=== PATIENT | male | born 1955 | race Caucasian/White ===

== ENCOUNTER 2019-06-01 08:11 | Observation (INO) | payer OTHER ==
[~2019-06-01] VITALS: Ht 185.4 cm; Wt 101.2 kg
[~2019-06-01 08:11] MED LIST: ASPIR 8181 MG PO; Apixab PO; CARDIZEM CD120 MG PO; LEVOTHYROXINE50 MCG PO; LEVOTHYROXINE75 MCG PO; SYNTHROID75 MCG PO
--- OUTSIDE RECORDS SUMMARY | 2019-06-01 08:13 | XMS REPORT | Continuity of Care Document ---
Author Author [facility] Organization [facility] Address Unknown Phone Unavailable Care Team Providers Care Steam Blocker Name Role Phone MD Justus, Nelson Unavailable Insurance Providers Payer name Policy type / Coverage type Policy ID Covered democrat ID Policy Dickey AETNA - AETNA OPEN ACCESS - MC - NAP Encounters Encounter Performer Location Date Office Visit Nelson Jerome MD [facility] Colorectal Surgery Dec 13, 2014 Problems Problem Effective Dates Problem Status SCREENING FOR COLON CANCER Dec 15, 2014 Active Medications Medication Instructions Start Date Status LEVOTHYROXINE SODIUM TABS Dec 13, 2014 Active ALEVE CAPS Dec 13, 2014 Active Vital Signs Date Description Test Result Dec 13, 2014 weight E&M - 3141-9 WEIGHT 234 lb Dec 13, 2014 temperature E&M TEMPERATURE 98.7 deg f Dec 13, 2014 pulse rate E&M - 8867-4 PULSE RATE 88 /min Dec 13, 2014 blood pressure, systolic - 8480-6 BP SYSTOLIC 145 mm Hg Dec 13, 2014 blood pressure, diastolic - 8462-4 BP DIASTOLIC 80 mm Hg
--- OUTSIDE RECORDS SUMMARY | 2019-06-01 08:13 | XMS REPORT | Continuity of Care Document ---
[facility] Address Unknown Phone Unavailable Care Team Providers Care Hairspring Truer Name Role Phone [facility] Information [place] Unavailable Unavailable Problems Problem Status Onset Date Classification Date Reported Comments Source SCREENING FOR COLON CANCER Active 12/15/2014 Condition 12/13/2014 [facility] Medications Medication Details Route Status Patient Instructions Ordering Provider Order Date Source LEVOTHYROXINE SODIUM TABS Active 12/13/2014 [facility] ALEVE CAPS Active 12/13/2014 [facility] Allergies, Adverse Reactions, Alerts No Known Medication Allergies Immunizations No Data Provided for This Section Results No Data Provided for This Section Pathology Reports No Data Provided for This Section Diagnostic Reports No Data Provided for This Section Consultation Notes No Data Provided for This Section Discharge Summaries No Data Provided for This Section History and Physicals No Data Provided for This Section Vital Signs Vital Sign Value Date Comments Source Weight 234 12/13/2014 [facility] Temperature Oral (F) 98.7 F 12/13/2014 [facility] Heart Rate 88 12/13/2014 [facility] Systolic (mm Hg) 145 12/13/2014 [facility] Diastolic (mm Hg) 80 12/13/2014 [facility] Encounters Location Location Details Encounter Type Encounter Number Reason For Visit Attending Provider ADM Date DC Date Status Source [facility] Colorectal Surgery Office Visit [id number] Esperanza Brown MD 12/13/2014 12/13/2014 [facility] Outpatient [id number] ESPERANZA BROWN 01/07/2015 Active [facility] Outpatient [id number] NURSE VISIT 08/18/2018 Active [facility] Outpatient [id number] MILYKALYAN GARCIA 08/22/2018 Active [facility] Outpatient [id number] MILYKALYAN GARCIA 09/29/2018 Active [facility] Outpatient [id number] MILYKALYAN GARCIA 09/29/2018 Active [facility] Outpatient [id number] MILYKALYAN GARCIA 09/29/2018 Active [facility] Outpatient [id number] MED_ASST VISIT 03/23/2019 Active [facility] Outpatient [id number] M[facility] 03/30/2019 Active [facility] Outpatient [id number] NURSE VISIT 04/06/2019 Active [facility] Outpatient [id number] NURSE VISIT 04/20/2019 Active [facility]patient [id number] [facility] 04/27/2019 Active [facility] [id number] M[facility] 05/17/2019 Active [facility] [id number] M[facility] 05/17/2019 Active [facility] [id number] NURSE VISIT 05/17/2019 Active [facility] [id number] MED_ASST VISIT 05/17/2019 Active [facility] Outpatient [id number] M[facility] 05/29/2019 Active [facility]patient [id number] [facility] 06/29/2019 Active [facility] Procedures No Data Provided for This Section Assessment and Plan No Data Provided for This Section Plan of Care No Data Provided for This Section Social History No Data Provided for This Section Family History No Data Provided for This Section Advance Directives No Data Provided for This Section Functional Status No Data Provided for This Section
--- NOTE | 2019-06-01 08:56 | NUR ---
UPDATED PLAN OF CARE. SOCKS GIVEN AND WARM BLANKETS.
[2019-06-01] MEDS ORDERED: SODIUM CHLORIDE 0.9% 1000ML 1,000 ML IV SCH ×2 (09:30→10:15)
--- NOTE | 2019-06-01 09:30 | NUR ---
2nd bc drawn and labeled and verified with pt/. taken to lab. rt hand with butterfly x one
[2019-06-01 09:47] LABS: BASOPHILS # (AUTO) 0.1 (0.0-0.1); EOSINOPHILS # (AUTO) 0.1 (0.0-0.4); EOSINOPHILS % 1.8 % (0.0-6.0); HEMATOCRIT 51.2 % (38.2-49.6); HEMOGLOBIN 16.6 g/dL (14.0-18.0); LYMPHOCYTES # (AUTO) 2.2 (1.0-3.2); LYMPHOCYTES % 29.7 % (18.0-39.1); MEAN CORPUSCULAR HEMOGLOBIN 31.6 pg (28-32); MEAN CORPUSCULAR HGB CONC 32.4 g/dL (31-35); MEAN CORPUSCULAR VOLUME 97.5 fL (81-99); MONOCYTES # (AUTO) 0.4 (0.2-0.8); MONOCYTES % 5.4 % (4.4-11.3); NEUTROPHILS # (AUTO) 4.5 (2.1-6.9); NEUTROPHILS % 61.8 % (38.7-80.0); PLATELET COUNT 263 x10e3/uL (140-360); RED BLOOD COUNT 5.25 x10e6/uL (4.3-5.7)
[2019-06-01 09:57] LABS: PARTIAL THROMBOPLASTIN TIME 34.1 seconds (23.8-35.5)
[2019-06-01 10:06] LABS: ALANINE AMINOTRANSFERASE 25 IU/L (0-55); ALBUMIN 4.4 g/dL (3.5-5.0); ALBUMIN/GLOBULIN RATIO 1.8 (0.8-2.0); ALKALINE PHOSPHATASE 59 IU/L (40-150); ANION GAP 19.3 mmol/L (8-16); BLOOD UREA NITROGEN 14 mg/dL (7-26); BUN/CREATININE RATIO 16 (6-25); CALCIUM 9.6 mg/dL (8.4-10.2); CARBON DIOXIDE 21 mmol/L (22-29); CHLORIDE 103 mmol/L (98-107); CREATINE KINASE 139 IU/L (30-200); CREATININE, SERUM 0.87 mg/dL (0.72-1.25); EST GLOMERULAR FILTRATION RATE > 60 ML/MIN (60-); GLUCOSE 73 mg/dL (74-118); POTASSIUM 4.3 mmol/L (3.5-5.1); SODIUM 139 mmol/L (136-145)
--- NOTE | 2019-06-01 10:10 | Diagnostic Imaging Report ---
Chest, 2 views Clinical indication: Low blood pressure, dizzy Comparison: None Findings: The heart is within normal limits in size. The mediastinal and hilar contours are unremarkable. There is minimal left basilar atelectasis. No focal consolidation, sizable pleural effusion, or pneumothorax. Mild multilevel degenerative changes of the thoracic spine are present. Impression: No radiographic evidence for acute cardiopulmonary process. Signed by: Kurt Trujillo MD on 06/01/2019 10:07 AM
[2019-06-01 10:12] LABS: BILIRUBIN,URINE NEGATIVE (NEGATIVE); CLARITY,URINE SL CLOUDY (CLEAR); COLOR,URINE YELLOW (YELLOW); KETONES,URINE 1+ (NEGATIVE); LEUKOCYTE ESTERASE ,URINE NEGATIVE (NEGATIVE); NITRITE,URINE NEGATIVE (NEGATIVE); PROTEIN,URINE DIPSTICK 2+ (NEGATIVE); URINE UROBILINOGEN 0.2 mg/dL (0.2 - 1)
[2019-06-01 10:18] LABS: INR 1.09; PROTHROMBIN TIME 14.6 seconds (11.9-14.5)
[2019-06-01 10:27] LABS: BACTERIA,URINE FEW /HPF; EPITHELIAL CELLS,URINE FEW /LPF
--- NOTE | 2019-06-01 11:40 | Diagnostic Imaging Report ---
EXAM: CT Abdomen and Pelvis WITH intravenous contrast INDICATION: Sepsis, recent TURP COMPARISON: None. TECHNIQUE: Abdomen and pelvis were scanned utilizing a multidetector helical scanner from the lung base to the pubic symphysis after administration of IV contrast. Coronal and sagittal reformations were obtained. Routine protocol was performed. Scan was performed during portal venous phase. IV CONTRAST: 100mL of Isovue 370 ORAL CONTRAST: Water RADIATION DOSE: Total DLP: 770.1 mGy*cm Dose modulation, iterative reconstruction, and/or weight based adjustment of the mA/kV was utilized to reduce the radiation dose to as low as reasonably achievable. FINDINGS: LOWER THORAX: The lung bases are clear. HEPATOBILIARY: No focal hepatic lesions. No biliary ductal dilatation. The gallbladder appears unremarkable. SPLEEN: No splenomegaly. PANCREAS: No focal masses or ductal dilatation. ADRENALS: No adrenal nodules. Line KIDNEYS/URETERS: No hydronephrosis, stones, or solid mass lesions. There is a 2.8 x 2.7 cm cyst in the upper pole of the left kidney. PELVIC ORGANS/BLADDER: Unremarkable. PERITONEUM / RETROPERITONEUM: No free air or fluid. LYMPH NODES: No lymphadenopathy. VESSELS: There are moderate atherosclerotic calcifications of the abdominal aorta and iliac vessels. GI TRACT: No distention or wall thickening. No evidence of appendicitis. There are scattered colonic diverticula without evidence of acute diverticulitis. BONES AND SOFT TISSUES: Patient is status post right total hip arthroplasty. No acute osseous abnormalities are identified. IMPRESSION: 1. No CT evidence of acute abdominal or pelvic pathology. 2. Left renal cyst. 3. Diverticulosis without evidence of acute diverticulitis. Signed by: Kurt Trujillo MD on 06/01/2019 11:37 AM
[2019-06-01] MEDS: CEFTRIAXONE SOD 1 GM/NS 50 ML 50 ML IV SCH (12:23)
[2019-06-01] MEDS ORDERED: SODIUM CHLORIDE 0.9% 50ML 50 ML ONE ×2 (13:18)
[2019-06-01] MEDS ORDERED: IOPAMIDOL 370 MG/ML 200 ML INFUS..BTL INJ ONE (13:18)
[2019-06-01] MEDS: SODIUM CHLORIDE 0.9% 1000ML 1,000 ML IV SCH ×3 (13:35→21:11)
[2019-06-01] MEDS ORDERED: CEFTRIAXONE SOD 1 GM/NS 50 ML 50 ML IV SCH (13:45)
--- OUTSIDE RECORDS SUMMARY | 2019-06-01 13:48 | XMS REPORT | Continuity of Care Document ---
Author Author [facility] Organization [facility] [employer] Address Unknown Phone Unavailable Care Team Providers Care Hand Glove Cleaner Name Role Phone [facility] Information [place] Unavailable Unavailable Problems Problem Status Onset Date Classification Date Reported Comments Source SCREENING FOR COLON CANCER Active 12/15/2014 Condition 12/13/2014 [facility] Medications Medication Details Route Status Patient Instructions Ordering Provider Order Date Source LEVOTHYROXINE SODIUM TABS Active 12/13/2014 [facility] ALEVE CAPS Active 12/13/2014 [facility] Allergies, Adverse Reactions, Alerts No Known [...] Date Comments Source Weight 234 12/13/2014 [facility] Temperature Oral (F) 98.7 F 12/13/2014 [facility] Heart Rate 88 12/13/2014 [facility] Systolic (mm Hg) 145 12/13/2014 [facility] Diastolic (mm Hg) 80 12/13/2014 [facility] Encounters Location Location Details Encounter Type Encounter Number Reason For Visit Attending Provider ADM Date DC Date Status Source [facility] Colorectal Surgery Office Visit [id number] Esperanza Brown MD 12/13/2014 12/13/2014 [facility] Outpatient [id number] ESPERANZA BROWN 01/07/2015 Active [facility] Outpatient [id number] NURSE VISIT 08/18/2018 Active [facility] Outpatient [id number] MILYKALYAN GARCIA 08/22/2018 Active [facility] Outpatient [id number] MILYKALYAN GARCIA 09/29/2018 Active [facility] Outpatient [id number] MILYKALYAN GARCIA 09/29/2018 Active [facility] Outpatient [id number] MILYKALYAN GARCIA 09/29/2018 Active [facility] Outpatient [id number] MED_ASST VISIT 03/23/2019 Active [facility] Outpatient [id number] Mily [facility] 03/30/2019 Active [facility] Outpatient [id number] NURSE VISIT 04/06/2019 Active [facility] Outpatient [id number] NURSE VISIT 04/20/2019 Active [facility] [id number] [facility] 04/27/2019 Active [facility] Out[facility] [id number] [facility] 05/17/2019 Active [facility] Out[facility] [id number] [facility] 05/17/2019 Active [facility] Outpatient [id number] NURSE VISIT 05/17/2019 Active [facility] Outpatient [id number] MED_ASST VISIT 05/17/2019 Active [facility] Outpatient [id number] [facility] 05/29/2019 Active [facility] Outpatient [id number] [facility] 06/29/2019 Active [facility] Procedures No Data [...]
--- OUTSIDE RECORDS SUMMARY | 2019-06-01 13:48 | XMS REPORT ---
Author Author [facility] Address Unknown Phone Unavailable Care Team Providers Care Commercial Appraiser Name Role Phone Roxana JOHN Unavailable Unavailable Problems This patient has no known problems. Allergies, Adverse Reactions, Alerts This patient has no known allergies or adverse reactions. Medications This patient has no known medications. Results Test Description Test Time Test Comments Text Results Atomic Results Result Comments CT ABDOMEN/PELVIS W 2019-06-01 11:32:00 [place] [address] Patient Name: CHANTEL POND MR #: [id number] : 1955 Age/Sex: 63/M Req #: [id number] Adm Physician: Ordered by: PAMELLA JOHN MD Report #: [id number] Location: ER Room/Bed: Procedure: [id number] CT/CT ABDOMEN/PELVIS W Exam Date: 06/01/19 Exam Time: 1050 REPORT STATUS: Signed EXAM: CT Abdomen and Pelvis WITH intravenous contrast INDICATION: Sepsis, recent TURP COMPARISON: None. TECHNIQUE: Abdomen and pelvis were scanned utilizing a multidetector helical scanner from the lung base to the pubic symphysis after administration of IV contrast. Coronal and sagittal reformations were obtained. Routine protocol was performed. Scan was performed during portal venous phase. IV CONTRAST: 100mL of Isovue 370 ORAL CONTRAST: Water RADIATION DOSE: Total DLP: 770.1 mGy*cm Dose modulation, iterative reconstruction, and/or weight based adjustment of the mA/kV was utilized to reduce the radiation dose to as low as reasonably achievable. FINDINGS: LOWER THORAX: The lung bases are clear. HEPATOBILIARY: No focal hepatic lesions. No biliary ductal dilatation. The gallbladder appears unremarkable. SPLEEN: No splenomegaly. PANCREAS: No focal masses or ductal dilatation. ADRENALS: No adrenal nodules. Line KIDNEYS/URETERS: No hydronephrosis, stones, or solid mass lesions. There is a 2.8 x 2.7 cm cyst in the upper pole of the left kidney. PELVIC ORGANS/BLADDER: Unremarkable. PERITONEUM / RETROPERITONEUM: No free air or fluid. LYMPH NODES: No lymphadenopathy. VESSELS: There are moderate atherosclerotic calcifications of the abdominal aorta and iliac vessels. GI TRACT: No distention or wall thickening. No evidence of appendicitis. There are scattered colonic diverticula without evidence of acute diverticulitis. BONES AND SOFT TISSUES: Patient is status post right total hip arthroplasty. No acute osseous abnormalities are identified. IMPRESSION: 1. No CT evidence of acute abdominal or pelvic pathology. 2. Left renal cyst. 3. Diverticulosis without evidence of acute diverticulitis. Signed by: Kurt Trujillo MD on 06/01/2019 11:37 AM Dictated By: KURT TRUJILLO MD 36 Transcribed By: VICTOR HUGO on 06/01/191136 COPY TO: PAMELLA JOHN MD CHEST 2 VIEWS 2019-06-01 10:06:00 [place] [address] Patient Name: CHANTEL POND MR #: [id number] : 1955 Age/Sex: 63/M Req #: [id number] Adm Physician: Ordered by: PAMELLA JOHN MD Report #: [id number] Location: Room/Bed: Procedure: [id number] DX/CHEST 2 VIEWS Exam Date: 06/01/19 Exam Time: 09 REPORT STATUS: Signed Chest, 2 views Clinical indication: Low blood pressure, dizzy Comparison: None Findings: The heart is within normal limits in size. The mediastinal and hilar contours are unremarkable. There is minimal left basilar atelectasis. No focal consolidation, sizable pleural effusion, or pneumothorax. Mild multilevel degenerative changes of the thoracic spine are present. Impression: No radiographic evidence for acute cardiopulmonary process. Signed by: Kurt Trujillo MD on 06/01/2019 10:07 AM Dictated By: KURT TRUJILLO MD 1007 Transcribed By: VICTOR HUGO on 06/01/19 1007 COPY TO: PAMELLA JOHN MD
[2019-06-01 14:59] VITALS: BP 117/61
[2019-06-01 15:00] VITALS: BP 117/61
[2019-06-01 15:02] VITALS: BP 117/61
[2019-06-01] MEDS ORDERED: LISINOPRIL10 MG PO (15:46)
[2019-06-01] MEDS ORDERED: LEVOTHYROXINE112 MCG PO (15:47)
[2019-06-01 16:12] VITALS: BP 117/61
[2019-06-01 19:35] VITALS: BP 117/61
[2019-06-01 20:00] VITALS: BP 109/64
[2019-06-02] VITALS (7 sets, daily range): BP systolic 99–146; BP diastolic 58–78
[2019-06-02 03:22] LABS: BASOPHILS % 0.6 % (0.0-1.0); EOSINOPHILS # (AUTO) 0.2 (0.0-0.4); EOSINOPHILS % 2.8 % (0.0-6.0); HEMATOCRIT 41.6 % (38.2-49.6); LYMPHOCYTES # (AUTO) 2.3 (1.0-3.2); LYMPHOCYTES % 36.5 % (18.0-39.1); MEAN CORPUSCULAR HEMOGLOBIN 32.4 pg (28-32); MEAN CORPUSCULAR HGB CONC 33.7 g/dL (31-35); MEAN CORPUSCULAR VOLUME 96.3 fL (81-99); MONOCYTES # (AUTO) 0.5 (0.2-0.8); MONOCYTES % 8.8 % (4.4-11.3); NEUTROPHILS # (AUTO) 3.2 (2.1-6.9); NEUTROPHILS % 51.1 % (38.7-80.0); PLATELET COUNT 207 x10e3/uL (140-360); RED BLOOD COUNT 4.32 x10e6/uL (4.3-5.7)
[2019-06-02 05:12] LABS: ALANINE AMINOTRANSFERASE 17 IU/L (0-55); ALBUMIN 3.1 g/dL (3.5-5.0); ALBUMIN/GLOBULIN RATIO 1.7 (0.8-2.0); BLOOD UREA NITROGEN 12 mg/dL (7-26); BUN/CREATININE RATIO 16 (6-25); CALCIUM 8.2 mg/dL (8.4-10.2); CARBON DIOXIDE 22 mmol/L (22-29); CHLORIDE 110 mmol/L (98-107); CREATININE, SERUM 0.73 mg/dL (0.72-1.25); EST GLOMERULAR FILTRATION RATE > 60 ML/MIN (60-); GLUCOSE 109 mg/dL (74-118); MAGNESIUM 2.1 MG/DL (1.3-2.1); PHOSPHORUS 2.6 MG/DL (2.3-4.7); SODIUM 141 mmol/L (136-145)
[2019-06-02] MEDS: LEVOTHYROXINE SODIUM 112 MCG TAB PO SCH (05:19)
[2019-06-02 05:36] LABS: ALKALINE PHOSPHATASE 57 IU/L (40-150)
[2019-06-02] MEDS: APIXABAN 5 MG TABLET PO SCH ×2 (08:39→17:17)
[2019-06-02] MEDS: FAMOTIDINE 20 MG TAB PO SCH ×2 (08:39→17:17)
[2019-06-02] MEDS ORDERED: [UNRECOGNIZED DRUG - OTHER] PO SCH (09:00)
[2019-06-02] MEDS: CEFTRIAXONE SOD 1 GM/NS 50 ML 50 ML IV SCH (10:15)
--- NOTE | 2019-06-02 12:40 | Consultation ---
DATE OF CONSULTATION: Cardiology Consultation CHIEF COMPLAINT: The patient is a 63-year-old, who came to the emergency room with low blood pressure. HISTORY OF PRESENT ILLNESS: The patient is a 63-year-old, came to the emergency room with hypotension and not feeling well. The patient reported some burning on urination after recent prostate biopsy. The patient was given IV fluid and his symptoms improved dramatically. The patient had no chest pain and no shortness of breath. PAST MEDICAL HISTORY: Significant for: 1. Paroxysmal atrial fibrillation. 2. Hypertension. 3. Hypothyroidism. 4. Prostate cancer. PAST SURGICAL HISTORY: Include: 1. Previous transurethral prostatectomy. 2. Right rotator cuff repair. 3. Right total hip replacement. MEDICATIONS: The patient's medications at home include: 1. Lisinopril. 2. Eliquis. 3. Amiodarone. SOCIAL HISTORY: The patient does not drink and does not smoke. FAMILY HISTORY: The patient's mother had a previous cerebrovascular accident. PHYSICAL EXAMINATION: GENERAL: The patient is a well-developed, well-nourished male, in no obvious distress. VITAL SIGNS: Included a temperature of 97, blood pulse is 74, and blood pressure of 131/74. HEAD, EARS, EYES, NOSE, AND THROAT: The patient's cranium was normocephalic and atraumatic. Extraocular muscles were intact. Sclerae were anicteric. Pupils were equal, round, and reactive to light. There was no pallor or cyanosis of the oral mucosa. There was no erythema or edema of the throat. NECK: Supple. No jugular venous distention. No carotid bruits. CHEST: Demonstrated rhonchi bilaterally. CARDIAC: Demonstrated a normal S1 and S2 with no murmurs, rubs, or gallops. ABDOMEN: Demonstrated good bowel sounds with no masses and no tenderness. EXTREMITIES: There was no clubbing, no cyanosis, and no edema. NEUROLOGIC: The patient was alert and oriented x3. Cranial nerves II through XII were intact. Motor strength was +5/+5 in all limbs. IMAGING: The patient's EKG demonstrated normal sinus rhythm with a normal record. IMPRESSION: The patient's cardiac status is stable. He has a history of paroxysmal atrial fibrillation, but is currently in normal sinus rhythm. RECOMMENDATIONS: 1. I feel the patient is to be continued on Eliquis and amiodarone for his paroxysmal atrial fibrillation. 2. There is no further cardiac workup required at this time. 3. The patient will need to follow up with Dr. Buckner in the office. MD JOANNA Goodson/MODL /[id number] cc: Taye Celis MD
[2019-06-02] MEDS: SODIUM CHLORIDE 0.9% 1000ML 1,000 ML IV SCH ×2 (13:19→21:40)
[2019-06-02] MEDS: HYDROCODONE/APAP 5MG-325MG TAB PO PRN ×2 (13:20→20:37)
[2019-06-02] MEDS ORDERED: FINASTERIDE5 MG PO (14:34)
[2019-06-02] MEDS: LISINOPRIL 10 MG TAB PO SCH (16:21)
[2019-06-02] MEDS: DILTIAZEM HCL ER 120 MG CAP PO SCH (16:21)
[2019-06-03] VITALS: BP 111/57
[2019-06-03 03:34] LABS: BASOPHILS # (AUTO) 0.1 (0.0-0.1); BASOPHILS % 1.3 % (0.0-1.0); EOSINOPHILS # (AUTO) 0.2 (0.0-0.4); EOSINOPHILS % 4.4 % (0.0-6.0); HEMATOCRIT 43.1 % (38.2-49.6); HEMOGLOBIN 14.2 g/dL (14.0-18.0); LYMPHOCYTES # (AUTO) 2.2 (1.0-3.2); LYMPHOCYTES % 46.8 % (18.0-39.1); MEAN CORPUSCULAR HEMOGLOBIN 32.3 pg (28-32); MEAN CORPUSCULAR HGB CONC 32.9 g/dL (31-35); MONOCYTES # (AUTO) 0.4 (0.2-0.8); MONOCYTES % 8.4 % (4.4-11.3); NEUTROPHILS # (AUTO) 1.9 (2.1-6.9); NEUTROPHILS % 38.9 % (38.7-80.0); PLATELET COUNT 186 x10e3/uL (140-360); RED CELL DISTRIBUTION WIDTH 13.2 % (11.7-14.4)
[2019-06-03 04:06] LABS: ANION GAP 11.2 mmol/L (8-16); BLOOD UREA NITROGEN 9 mg/dL (7-26); BUN/CREATININE RATIO 12 (6-25); CALCIUM 8.4 mg/dL (8.4-10.2); CARBON DIOXIDE 24 mmol/L (22-29); CHLORIDE 110 mmol/L (98-107); CREATININE, SERUM 0.75 mg/dL (0.72-1.25); EST GLOMERULAR FILTRATION RATE > 60 ML/MIN (60-); GLUCOSE 86 mg/dL (74-118); POTASSIUM 4.2 mmol/L (3.5-5.1); SODIUM 141 mmol/L (136-145)
[2019-06-03 04:55] VITALS: BP 104/51
[2019-06-03] MEDS ORDERED: HYDRALAZINE HCL 20 MG/ML VIAL IV PRN (05:00)
[2019-06-03] MEDS ORDERED: ONDANSETRON HCL INJ 2MG/ML 2ML 2 MG/ML VIAL IV PRN (05:00)
[2019-06-03] MEDS ORDERED: ACETAMINOPHEN 325 MG TAB PO PRN (05:00)
[2019-06-03] MEDS: LEVOTHYROXINE SODIUM 112 MCG TAB PO SCH (05:03)
[2019-06-03 05:10] LABS: FREE T4 (FREE THYROXINE) 1.02 ng/dL (0.8-1.8); THYROID STIMULATING HORMONE 2.86 uIU/mL (0.350-4.940)
[2019-06-03] MEDS: HYDROCODONE/APAP 5MG-325MG TAB PO PRN (06:43)
--- NOTE | 2019-06-03 07:12 | NUR ---
PT RESTING IN BED AAOX3 PT C/O PAIN TO H/A 02/16 GIVEN NORCO PRN BY RN CLINICAL DOCUMENTATION SPECIALIST PRIOR TO SHIFT CHANGE RIGHT AC 20 SL PATENT AND DRY WILL CONTINUE TO MONITOR PT CLOSELY SIDE RAILSX2, BED WHEELS LOCKED CALL LIGHT IS WITHIN EASY REACH INSTRUCTED TO CALL FOR ASSISTANCE IF NEEDED
[2019-06-03 07:34] VITALS: BP 125/68
[2019-06-03 08:33] VITALS: BP 125/68
[2019-06-03] MEDS: DILTIAZEM HCL ER 120 MG CAP PO SCH (08:33)
[2019-06-03] MEDS: APIXABAN 5 MG TABLET PO SCH ×2 (08:33→16:34)
[2019-06-03] MEDS: FAMOTIDINE 20 MG TAB PO SCH ×2 (08:33→16:34)
[2019-06-03] MEDS: LISINOPRIL 10 MG TAB PO SCH (09:00)
[2019-06-03] MEDS: CEFTRIAXONE SOD 1 GM/NS 50 ML 50 ML IV SCH (10:08)
[2019-06-03 11:54] VITALS: BP 119/66
--- NOTE | 2019-06-03 20:21 | Consultation ---
DATE OF CONSULTATION: 06/02/2019 Urologic Consultation Consultation is called by Dr. Celis. CHIEF UROLOGIC COMPLAINT AND REASON FOR CONSULTATION: Sepsis, urinary tract infection and prostatitis. HISTORY OF PRESENT ILLNESS: Mr. Wilson is a 63-year-old male patient who underwent a prostate biopsy by Dr. Fran Graham approximately 12 or 13 days ago. He has had dysuria pretty much since the procedure, occasional intermittent gross hematuria. He was admitted to the hospital with septic shock, elevated lactic acid, hypotension, tachycardia. PAST MEDICAL HISTORY: As above. MEDICATIONS: Please see MAR. ALLERGIES: NKDA. SOCIAL HISTORY: Denied smoking or drinking. FAMILY HISTORY: Denied urologic stones or malignancies. REVIEW OF SYSTEMS: Noncontributory, other than problems mentioned above for 12 organ systems. PHYSICAL EXAMINATION: GENERAL: Middle-aged male, in no acute distress. VITAL SIGNS: Currently, temperature 96.1, pulse 73, respirations 18, and blood pressure 146/78. HEENT: Sclerae anicteric. NECK: Supple. BACK: Without costovertebral angle tenderness bilaterally. ABDOMEN: Soft, nontender, and nondistended. No palpable mass. No palpable hernias. No palpable adenopathy. : Normal male external genitalia. EXTREMITIES: No edema. NEURO: Moving all four extremities. PSYCH: Alert and mood appropriate. SKIN: Intact. Normal color. PERTINENT LABORATORY DATA: CT scan revealing a 2.8 cm left upper pole renal cyst, diverticulosis. Sodium 141, potassium 4.0, chloride 110, bicarb 22, BUN 12, creatinine 0.73, glucose 109, hemoglobin 14, hematocrit 42, platelet count 207,000 white blood count 6000. On June 01, lactic acid 36, PT 14.6, PTT of 34.1. Urinalysis, 3-5 reds, 0-5 whites, 2+ protein. IMPRESSION: 1. Prostatitis. 2. Urinary tract infection. 3. Microscopic hematuria. 4. Coagulopathy. 5. Hypertension. 6. Renal cyst. 7. Proteinuria. PLAN: Begin the patient on broad-spectrum antibiotics. It appears Dr. Graham has already started him on some and per the patient's report culture there was negative. Provide supportive care. From urologic standpoint if culture is negative, we would continue outpatient antibiotics and follow up with urologist of his choice. Thank you for allowing me to participate in the care of your patient. I will be happy to follow along with you. MD RODO Bertrand/NELSONL /[id number] cc: MD Zach Fraser III, MD Ronald W Killam, MD
[2019-06-03 20:44] VITALS: BP 119/65
[2019-06-04 00:32] VITALS: BP 131/72
[2019-06-04 03:39] LABS: BASOPHILS # (AUTO) 0.1 (0.0-0.1); BASOPHILS % 1.1 % (0.0-1.0); EOSINOPHILS # (AUTO) 0.3 (0.0-0.4); EOSINOPHILS % 4.6 % (0.0-6.0); HEMATOCRIT 47.3 % (38.2-49.6); HEMOGLOBIN 15.6 g/dL (14.0-18.0); LYMPHOCYTES # (AUTO) 2.1 (1.0-3.2); LYMPHOCYTES % 37.7 % (18.0-39.1); MEAN CORPUSCULAR HEMOGLOBIN 31.8 pg (28-32); MEAN CORPUSCULAR VOLUME 96.5 fL (81-99); MONOCYTES # (AUTO) 0.4 (0.2-0.8); NEUTROPHILS # (AUTO) 2.7 (2.1-6.9); NEUTROPHILS % 48.6 % (38.7-80.0); PLATELET COUNT 216 x10e3/uL (140-360); RED CELL DISTRIBUTION WIDTH 12.8 % (11.7-14.4)
[2019-06-04 04:02] LABS: ANION GAP 12.9 mmol/L (8-16); BLOOD UREA NITROGEN 9 mg/dL (7-26); BUN/CREATININE RATIO 12 (6-25); CALCIUM 9.2 mg/dL (8.4-10.2); CARBON DIOXIDE 27 mmol/L (22-29); CHLORIDE 107 mmol/L (98-107); CREATININE, SERUM 0.76 mg/dL (0.72-1.25); EST GLOMERULAR FILTRATION RATE > 60 ML/MIN (60-); GLUCOSE 89 mg/dL (74-118); POTASSIUM 3.9 mmol/L (3.5-5.1); SODIUM 143 mmol/L (136-145)
[2019-06-04 04:50] VITALS: BP 152/72
[2019-06-04] MEDS: LEVOTHYROXINE SODIUM 112 MCG TAB PO SCH (05:30)
--- NOTE | 2019-06-04 06:33 | NUR ---
PT DC TO HOME. IV REMOVED WITH TIP INTACT. PRESSURE DRESSING APPLIED. DISCHARGE INSTRUCTIONS GIVEN. BELONGINGS GATHERED BY PT. VITALS STABLE
--- NOTE | 2019-06-06 23:42 | Discharge Summary ---
ADMISSION DIAGNOSES: Recent history of prostatitis, urinary tract infection with septic shock, atrial fibrillation, hypertension, hypothyroidism, obesity. DISCHARGE DIAGNOSES: Recent history of prostatitis, urinary tract infection with septic shock, atrial fibrillation, hypertension, hypothyroidism, obesity, rule out urinary tract infection, dehydration. MEDICAL HISTORY: AFib, hypertension, hypothyroidism, prostate cancer. SURGICAL HISTORY: Right rotator cuff repair, right total hip replacement, appendectomy. FAMILY HISTORY: The patient's mother had diabetes and a stroke. SOCIAL HISTORY: Occasional alcohol use. HOSPITAL COURSE: A 63-year-old male complains of hypotension of 80/40 on the day before admission. He has been asymptomatic, but feels better after IV fluids and antibiotics. He was taking Vantin after getting a recent prostate biopsy, but now denies dysuria, hematuria, and fever. On admission, the patient was started on IV Rocephin and Neurology was consulted. Chest x-ray was negative. CT of the abdomen was negative. UA came back positive for wbc's and rbc's. Lactic acid on admission was 36.1. He was given IV fluids. After a couple of days, the urine culture came back negative. The blood pressure improved with a couple of liters of IV fluids and then he was resumed on home medicines and his blood pressure remained controlled. He will discharge home with home medicines. The patient understands discharge instructions and agrees to plan. Vital signs stable, the patient afebrile. Dictated by Jazmín Petty NP MD ELKE Corea/PHILLY /[id number]
== END 2019-06-04 06:33 | disposition home or self-care (01) ==
LOC: ER 08:11 → ERHOLD 13:44 → IMCU 14:50 → MED/SURG 06-02 17:40
PROVIDERS: ADMIT Internal Medicine; ATTEND Internal Medicine
DX: A41.9 Sepsis, unspecified organism (principal); N39.0 Urinary tract infection, site not specified; I48.0 Paroxysmal atrial fibrillation; Z79.01 Long term (current) use of anticoagulants; Z85.46 Personal history of malignant neoplasm of prostate; I10 Essential (primary) hypertension; E03.9 Hypothyroidism, unspecified; E86.0 Dehydration; N41.9 Inflammatory disease of prostate, unspecified; R65.21 Severe sepsis with septic shock; N28.1 Cyst of kidney, acquired; R31.29 Other microscopic hematuria
CPT/HCPCS: 36415 ×4; 71046; 74177; 80048 ×2; 80053 ×2; 81001; 82550; 82553; 83605; 83735; 84100; 84439; 84443; 84484; 85025 ×4; 85610; 85730; 87040; 87086; 93005; 99284; G0378 ×4; J0696 ×3; J7030 ×2; Q9967

== ENCOUNTER → 2021-05-26 | Day surgery (SDC) | payer BC ==
[2021-05-21 09:45] LABS: BASOPHILS # (AUTO) 0.1 (0.0-0.1); BASOPHILS % 1.2 % (0.0-1.0); EOSINOPHILS # (AUTO) 0.2 (0.0-0.4); EOSINOPHILS % 3.3 % (0.0-6.0); HEMATOCRIT 50.8 % (38.2-49.6); HEMOGLOBIN 16.2 g/dL (14.0-18.0); LYMPHOCYTES # (AUTO) 2.1 (1.0-3.2); LYMPHOCYTES % 36.3 % (18.0-39.1); MEAN CORPUSCULAR HEMOGLOBIN 31.2 pg (28-32); MEAN CORPUSCULAR HGB CONC 31.9 g/dL (31-35); MEAN CORPUSCULAR VOLUME 97.9 fL (81-99); MONOCYTES # (AUTO) 0.4 (0.2-0.8); MONOCYTES % 7.7 % (4.4-11.3); NEUTROPHILS # (AUTO) 2.9 (2.1-6.9); NEUTROPHILS % 51.1 % (38.7-80.0); PLATELET COUNT 213 x10e3/uL (140-360); RED BLOOD COUNT 5.19 x10e6/uL (4.3-5.7); RED CELL DISTRIBUTION WIDTH 13.4 % (11.7-14.4)
[2021-05-21 10:14] LABS: ALBUMIN 3.9 g/dL (3.5-5.0); ALBUMIN/GLOBULIN RATIO 1.3 (0.8-2.0); ANION GAP 15.3 mmol/L (8-16); CALCIUM 8.8 mg/dL (8.4-10.2); CREATININE, SERUM 0.9 mg/dL (0.72-1.25); POTASSIUM 4.3 mmol/L (3.5-5.1)
[2021-05-26] VITALS (9 sets, daily range): BP systolic 126–157; BP diastolic 70–86
[~2021-05-26] VITALS: Ht 182.9 cm; Wt 104.3 kg
[~2021-05-26] MED LIST changes: +ALPRAZOLAM 0.5 MG TAB ONE; +AMIODARONE HCL200 MG PO; +ASPIRIN 325 MG TAB ONE; +CLOPIDOGREL75 MG PO; +DIPHENHYDRAMINE HCL 25 MG CAP ONE; +ELIQUIS5 MG PO; +FENTANYL CITRATE/PF 100MCG/2 ML INJ ONE; +FINASTERIDE5 MG PO; +FLOMAX0.4 MG PO; +HEPARIN SOD/SOD CHLORIDE 2,000 ML ONE; +IOPAMIDOL 300MG/ML 100 ML INFUS..BTL IV ONE; +LEVOTHYROXINE112 MCG PO; +LIDOCAINE HCL 2% LOCAL 20 ML VIAL ONE; +LISINOPRIL10 MG PO; +MIDAZOLAM HCL 2 MG/2 ML VIAL ONE; +PRASUGREL 10 MG TAB ONE; +SODIUM CHLORIDE 0.9% 1000ML 1,000 ML ONE
== END | disposition home or self-care (01) ==
LOC: CATH LAB 02:17
PROVIDERS: ATTEND Internal Medicine Interventional Cardiology
DX: I70.213 Atherosclerosis of native arteries of extremities with intermittent claudication, bilateral legs (principal); I20.8 Other forms of angina pectoris; I82.493 Acute embolism and thrombosis of other specified deep vein of lower extremity, bilateral; I48.91 Unspecified atrial fibrillation; I71.4 Abdominal aortic aneurysm, without rupture; R09.89 Other specified symptoms and signs involving the circulatory and respiratory systems; Z01.812 Encounter for preprocedural laboratory examination; Z20.822 Contact with and (suspected) exposure to COVID-19; Z79.02 Long term (current) use of antithrombotics/antiplatelets; Z68.30 Body mass index [BMI] 30.0-30.9, adult; Z95.820 Peripheral vascular angioplasty status with implants and grafts
CPT/HCPCS: 36415; 37186; 37226; 75625; 76937; 80053; 83880; 85025; C1760; C1769 ×2; C1887 ×2; C2623 ×2; J2001; J2250; J3010; J7030; Q9967; U0002; 36247; 37224; 75716; 99152; 99153

== ENCOUNTER → 2021-06-23 | Day surgery (SDC) | payer BC ==
[2021-06-22 11:44] LABS: BASOPHILS # (AUTO) 0.1 (0.0-0.1); BASOPHILS % 0.9 % (0.0-1.0); EOSINOPHILS # (AUTO) 0.2 (0.0-0.4); EOSINOPHILS % 2.7 % (0.0-6.0); HEMATOCRIT 48.1 % (38.2-49.6); HEMOGLOBIN 15.5 g/dL (14.0-18.0); LYMPHOCYTES # (AUTO) 2.2 (1.0-3.2); LYMPHOCYTES % 30.2 % (18.0-39.1); MEAN CORPUSCULAR HEMOGLOBIN 31.6 pg (28-32); MEAN CORPUSCULAR HGB CONC 32.2 g/dL (31-35); MONOCYTES # (AUTO) 0.5 (0.2-0.8); MONOCYTES % 7.2 % (4.4-11.3); NEUTROPHILS # (AUTO) 4.3 (2.1-6.9); NEUTROPHILS % 58.6 % (38.7-80.0); PLATELET COUNT 215 x10e3/uL (140-360); RED BLOOD COUNT 4.91 x10e6/uL (4.3-5.7); RED CELL DISTRIBUTION WIDTH 13.7 % (11.7-14.4)
[2021-06-22 12:04] LABS: ALBUMIN/GLOBULIN RATIO 1.4 (0.8-2.0); ANION GAP 12.6 mmol/L (8-16); CALCIUM 8.5 mg/dL (8.4-10.2); CREATININE, SERUM 1.01 mg/dL (0.72-1.25); POTASSIUM 3.6 mmol/L (3.5-5.1)
[2021-06-23] VITALS (15 sets, daily range): BP systolic 110–157; BP diastolic 60–77
[~2021-06-23] VITALS: Ht 182.9 cm; Wt 104.3 kg
[~2021-06-23] MED LIST changes: +HEPARIN SOD (PORCINE) 1000 UNIT/ML 30ML ONE; +NITROGLYCERIN/D5W 200 MCG/ML 250 ML ONE; +PROTAMINE SULFATE 10 MG/ML 5 ML VIAL ONE; +SODIUM CHLORIDE 0.9% 100 ML ONE; +SODIUM CHLORIDE 0.9% 1000ML 0 ML ONE; +SODIUM CHLORIDE 0.9% 250ML 250 ML ONE; +VERAPAMIL HCL 2.5 MG/ML 2 ML VIAL ONE
== END | disposition home or self-care (01) ==
LOC: CATH LAB 11:17
PROVIDERS: ATTEND Internal Medicine Interventional Cardiology
DX: I70.211 Atherosclerosis of native arteries of extremities with intermittent claudication, right leg (principal); I25.119 Atherosclerotic heart disease of native coronary artery with unspecified angina pectoris; I48.91 Unspecified atrial fibrillation; Z01.812 Encounter for preprocedural laboratory examination; Z20.822 Contact with and (suspected) exposure to COVID-19
CPT/HCPCS: 36415; 37186; 37227; 75710; 76937; 80053; 85025; C1724; C1725; C1760; C1769 ×3; C1887; C1894; C2623; J1644; J2001; J2250; J2720; J3010; J7030; J7050 ×2; Q9967; U0002; 36247; 37224; 99152; 99153

== ENCOUNTER → 2021-11-12 | Day surgery (SDC) | payer BC ==
[2021-11-10 08:29] LABS: BASOPHILS # (AUTO) 0.1 (0.0-0.1); EOSINOPHILS # (AUTO) 0.2 (0.0-0.4); EOSINOPHILS % 3.5 % (0.0-6.0); HEMATOCRIT 49.5 % (38.2-49.6); HEMOGLOBIN 16.1 g/dL (14.0-18.0); LYMPHOCYTES # (AUTO) 2.4 (1.0-3.2); LYMPHOCYTES % 40.7 % (18.0-39.1); MEAN CORPUSCULAR HEMOGLOBIN 31.4 pg (28-32); MEAN CORPUSCULAR HGB CONC 32.5 g/dL (31-35); MEAN CORPUSCULAR VOLUME 96.7 fL (81-99); MONOCYTES # (AUTO) 0.4 (0.2-0.8); MONOCYTES % 6.7 % (4.4-11.3); NEUTROPHILS # (AUTO) 2.8 (2.1-6.9); NEUTROPHILS % 47.8 % (38.7-80.0); PLATELET COUNT 196 x10e3/uL (140-360); RED BLOOD COUNT 5.12 x10e6/uL (4.3-5.7); RED CELL DISTRIBUTION WIDTH 13.3 % (11.7-14.4)
[~2021-11-12] MED LIST changes: -ALPRAZOLAM 0.5 MG TAB ONE; -ASPIRIN 325 MG TAB ONE; +ASPIRIN81 MG PO; -DIPHENHYDRAMINE HCL 25 MG CAP ONE; -HEPARIN SOD (PORCINE) 1000 UNIT/ML 30ML ONE; -HEPARIN SOD/SOD CHLORIDE 2,000 ML ONE; -IOPAMIDOL 300MG/ML 100 ML INFUS..BTL IV ONE; -LIDOCAINE HCL 2% LOCAL 20 ML VIAL ONE; +LIDOCAINE HCL 2% LOCAL INJ 5 ML SDV VIAL INJ ONE; +LIPITOR10 MG PO; -NITROGLYCERIN/D5W 200 MCG/ML 250 ML ONE; -PRASUGREL 10 MG TAB ONE; +PROPOFOL IV EMULSION 10 MG/ML 20 ML VIAL ONE; -PROTAMINE SULFATE 10 MG/ML 5 ML VIAL ONE; -SODIUM CHLORIDE 0.9% 100 ML ONE; -SODIUM CHLORIDE 0.9% 1000ML 0 ML ONE; -SODIUM CHLORIDE 0.9% 1000ML 1,000 ML ONE; -SODIUM CHLORIDE 0.9% 250ML 250 ML ONE; -VERAPAMIL HCL 2.5 MG/ML 2 ML VIAL ONE
[2021-11-12 14:27] VITALS: BP 130/78
== END | disposition home or self-care (01) ==
LOC: OR 11:17
PROVIDERS: ATTEND Internal Medicine Gastroenterology
DX: Z12.11 Encounter for screening for malignant neoplasm of colon (principal); D12.0 Benign neoplasm of cecum; D12.2 Benign neoplasm of ascending colon; D12.3 Benign neoplasm of transverse colon; K57.30 Diverticulosis of large intestine without perforation or abscess without bleeding; K64.8 Other hemorrhoids; R12 Heartburn; Z71.3 Dietary counseling and surveillance; C61 Malignant neoplasm of prostate; I10 Essential (primary) hypertension; E03.9 Hypothyroidism, unspecified; I48.91 Unspecified atrial fibrillation; I73.9 Peripheral vascular disease, unspecified; N40.0 Benign prostatic hyperplasia without lower urinary tract symptoms; Z01.810 Encounter for preprocedural cardiovascular examination; Z01.812 Encounter for preprocedural laboratory examination; Z20.822 Contact with and (suspected) exposure to COVID-19; Z79.02 Long term (current) use of antithrombotics/antiplatelets; Z79.82 Long term (current) use of aspirin; Z79.899 Other long term (current) drug therapy; Z68.32 Body mass index [BMI] 32.0-32.9, adult
CPT/HCPCS: 36415; 45380; 45385; 85025; 93005; J2001; J2250; J2704; J3010; U0002; 45378; 45384

== ENCOUNTER 2022-06-05 08:16 | Emergency (ER) | payer BC, OTHER ==
[~2022-06-05] VITALS: Ht 154.9 cm; Wt 104.3 kg
[~2022-06-05 08:16] MED LIST changes: -FENTANYL CITRATE/PF 100MCG/2 ML INJ ONE; -LIDOCAINE HCL 2% LOCAL INJ 5 ML SDV VIAL INJ ONE; -MIDAZOLAM HCL 2 MG/2 ML VIAL ONE; -PROPOFOL IV EMULSION 10 MG/ML 20 ML VIAL ONE
[2022-06-05 08:35] LABS: BASOPHILS % 0.6 % (0.0-1.0); EOSINOPHILS % 0.4 % (0.0-6.0); HEMATOCRIT 48.7 % (38.2-49.6); HEMOGLOBIN 15.6 g/dL (14.0-18.0); LYMPHOCYTES # (AUTO) 1.3 (1.0-3.2); LYMPHOCYTES % 18.4 % (18.0-39.1); MEAN CORPUSCULAR HEMOGLOBIN 31.7 pg (28-32); MONOCYTES # (AUTO) 0.7 (0.2-0.8); MONOCYTES % 10.8 % (4.4-11.3); NEUTROPHILS # (AUTO) 4.8 (2.1-6.9); NEUTROPHILS % 69.7 % (38.7-80.0); PLATELET COUNT 181 x10e3/uL (140-360); RED BLOOD COUNT 4.92 x10e6/uL (4.3-5.7); RED CELL DISTRIBUTION WIDTH 12.9 % (11.7-14.4)
[2022-06-05] MEDS ORDERED: KETOROLAC TROMETHAMINE 30 MG/ML VIAL IM STA (08:45)
[2022-06-05] MEDS ORDERED: TETANUS/DIPHTHERIA TOX ADULT 0.5 ML SYR IM ONE (08:45)
[2022-06-05 08:50] LABS: ALBUMIN 3.8 g/dL (3.5-5.0); ALBUMIN/GLOBULIN RATIO 1.4 (0.8-2.0); ANION GAP 14.1 mmol/L (8-16); CALCIUM 8.6 mg/dL (8.4-10.2); CREATININE, SERUM 0.74 mg/dL (0.72-1.25); POTASSIUM 4.1 mmol/L (3.5-5.1)
[2022-06-05 08:56] LABS: INR 0.97; PROTHROMBIN TIME 13.8 seconds (11.9-14.5)
[2022-06-05] MEDS ORDERED: LACTATED RINGER'S 1,000 ML INJ ONE (09:00)
[2022-06-05] MEDS ORDERED: LIDOCAINE HCL 1% 2 ML AMP ONE (10:11)
[2022-06-05] MEDS ORDERED: NAPROXEN250 MG PO (10:31)
== END 2022-06-05 11:12 | disposition home or self-care (01) ==
LOC: ER 08:21
DX: S01.112A Laceration without foreign body of left eyelid and periocular area, initial encounter (principal); R55 Syncope and collapse; W18.39XA Other fall on same level, initial encounter; Y92.89 Other specified places as the place of occurrence of the external cause
CPT/HCPCS: 12011; 36415; 70450; 71045; 72125; 80053; 83880; 84484; 85025; 85610; 90471; 90714; 93005; 99284; J1885; J2001; J7121

== ENCOUNTER 2025-01-03 03:11 | Inpatient (IN) | payer MEDICARE ==
[~2025-01-03] VITALS: Ht 182.9 cm; Wt 108.9 kg
[2025-01-03] VITALS (8 sets, daily range): BP systolic 130–146; BP diastolic 74–94; PULSE 77–156; RESP 19–21; TEMP 97.9–100; O2SAT 96–100
[~2025-01-03 03:11] MED LIST changes: +NAPROXEN250 MG PO
[2025-01-03 03:36] LABS: BASOPHILS % 0.1 % (0.0-1.0); HEMATOCRIT 43.5 % (38.2-49.6); HEMOGLOBIN 14.9 g/dL (14.0-18.0); LYMPHOCYTES # (AUTO) 0.8 (1.0-3.2); LYMPHOCYTES % 3.8 % (18.0-39.1); MEAN CORPUSCULAR HGB CONC 34.3 g/dL (31-35); MEAN CORPUSCULAR VOLUME 87.7 fL (81-99); MONOCYTES % 4.8 % (4.4-11.3); NEUTROPHILS # (AUTO) 19.1 (2.1-6.9); NEUTROPHILS % 89.5 % (38.7-80.0); PLATELET COUNT 212 x10e3/uL (140-360); RED BLOOD COUNT 4.96 x10e6/uL (4.3-5.7); RED CELL DISTRIBUTION WIDTH 14.1 % (11.7-14.4); WHITE BLOOD COUNT 21.34 x10e3/uL (4.8-10.8)
[2025-01-03] MEDS: ONDANSETRON HCL INJ 2MG/ML 2ML 2 MG/ML VIAL IV STA (03:36)
[2025-01-03] MEDS: SODIUM CHLORIDE 0.9% 1000ML 1,000 ML IV STA ×2 (03:36→04:55)
[2025-01-03 03:53] LABS: BILIRUBIN,URINE SMALL (NEGATIVE); CLARITY,URINE CLEAR (CLEAR); COLOR,URINE AMBER (YELLOW); GLUCOSE, URINE NEGATIVE (NEGATIVE); KETONES,URINE TRACE (NEGATIVE); LEUKOCYTE ESTERASE ,URINE NEGATIVE (NEGATIVE); NITRITE,URINE NEGATIVE (NEGATIVE); PH,URINE 6.5 (5 - 7); PROTEIN,URINE DIPSTICK >=300 (NEGATIVE); URINE UROBILINOGEN 1 mg/dL (0.2 - 1)
[2025-01-03 03:58] LABS: ALBUMIN/GLOBULIN RATIO 0.8 (0.8-2.0); ANION GAP 15.1 mmol/L (8-16); BILIRUBIN,TOTAL 0.7 mg/dL (0.2-1.2); CALCIUM 8.9 mg/dL (8.4-10.2); CREATININE, SERUM 1.01 mg/dL (0.72-1.25)
[2025-01-03 04:02] LABS: CORONAVIRUS COVID-19 AG NEGATIVE (NEGATIVE); INFLUENZA A AG NEGATIVE (NEGATIVE); INFLUENZA B AG NEGATIVE (NEGATIVE); STREPTOCOCCUS GRP A ANTIGEN NEGATIVE (NEGATIVE)
[2025-01-03 04:04] LABS: TROPONIN I 0.019 ng/mL (0-0.300); WBC,URINE (MAN) 21-50 /HPF (0-5)
[2025-01-03 04:05] LABS: BACTERIA,URINE MANY /HPF; EPITHELIAL CELLS,URINE FEW /LPF; POTASSIUM 3.1 mmol/L (3.5-5.1); RBC,URINE 21-50 /HPF (0-5)
[2025-01-03] MEDS: ACETAMINOPHEN 325 MG TAB PO STA (04:55)
[2025-01-03] MEDS ORDERED: IOPAMIDOL 370 MG/ML 100 ML INFUS..BTL INJ ONE (05:46)
[2025-01-03] MEDS: SODIUM CHLORIDE 0.9% 1000ML 1,000 ML IV SCH (06:30)
[2025-01-03] MEDS ORDERED: NEURONTIN300 MG PO (08:15)
[2025-01-03] MEDS ORDERED: AMITRIPTYLINE H25 MG PO (08:16)
[2025-01-03] MEDS ORDERED: TOPIRAMATE25 MG PO (08:16)
[2025-01-03] MEDS ORDERED: ALBUTEROL/IPRATROPIUM 3 ML NEB NEB PRN (10:45)
[2025-01-03] MEDS ORDERED: DOCUSATE SODIUM 100 MG CAP PO PRN (10:45)
[2025-01-03] MEDS ORDERED: METOPROLOL TARTRATE INJ 1 MG/ML VIAL IV PRN (10:45)
[2025-01-03] MEDS: Morphine 2mg Syringe 2 MG/ML SYR IV PRN (12:44)
[2025-01-03] MEDS: ONDANSETRON HCL INJ 2MG/ML 2ML 2 MG/ML VIAL IV PRN (12:51)
[2025-01-03 15:32] LABS: TROPONIN I 0.011 ng/mL (0-0.300)
[2025-01-03] MEDS: GABAPENTIN 300 MG CAP PO SCH (16:27)
[2025-01-03] MEDS: ENOXAPARIN SOD INJ 40 MG/0.4 ML SYR SC SCH (16:28)
[2025-01-03] MEDS: MELATONIN 3 MG TAB PO PRN (21:11)
[2025-01-03] MEDS: ACETAMINOPHEN 325 MG TAB PO PRN (21:15)
[2025-01-04] VITALS (10 sets, daily range): BP systolic 96–120; BP diastolic 57–77; PULSE 55–150; RESP 18–22; TEMP 97.5–98.7; O2SAT 96–100
[2025-01-04 05:32] LABS: BASOPHILS % 0.4 % (0.0-1.0); EOSINOPHILS % 0.3 % (0.0-6.0); HEMATOCRIT 40.5 % (38.2-49.6); HEMOGLOBIN 13.1 g/dL (14.0-18.0); LYMPHOCYTES # (AUTO) 1.2 (1.0-3.2); LYMPHOCYTES % 10.3 % (18.0-39.1); MEAN CORPUSCULAR HEMOGLOBIN 29.9 pg (28-32); MEAN CORPUSCULAR HGB CONC 32.3 g/dL (31-35); MEAN CORPUSCULAR VOLUME 92.5 fL (81-99); MONOCYTES % 9.1 % (4.4-11.3); NEUTROPHILS # (AUTO) 8.9 (2.1-6.9); NEUTROPHILS % 79.2 % (38.7-80.0); PLATELET COUNT 203 x10e3/uL (140-360); RED BLOOD COUNT 4.38 x10e6/uL (4.3-5.7); RED CELL DISTRIBUTION WIDTH 14.5 % (11.7-14.4); WHITE BLOOD COUNT 11.17 x10e3/uL (4.8-10.8)
[2025-01-04] MEDS: LEVOTHYROXINE SODIUM 75 MCG TAB PO SCH (05:33)
[2025-01-04 06:19] LABS: ALBUMIN 2.2 g/dL (3.5-5.0); ALBUMIN/GLOBULIN RATIO 0.6 (0.8-2.0); ANION GAP 12.4 mmol/L (8-16); BILIRUBIN,TOTAL 0.6 mg/dL (0.2-1.2); CALCIUM 8.1 mg/dL (8.4-10.2); CREATININE, SERUM 0.72 mg/dL (0.72-1.25); TOTAL PROTEIN 5.8 g/dL (6.5-8.1)
[2025-01-04 06:20] LABS: POTASSIUM 3.4 mmol/L (3.5-5.1)
[2025-01-04 06:27] LABS: TROPONIN I 0.015 ng/mL (0-0.300)
[2025-01-04] MEDS ORDERED: AMITRIPTYLINE HCL 25 MG TAB PO SCH (09:00)
[2025-01-04] MEDS: TAMSULOSIN HCL 0.4 MG CAP PO SCH (09:28)
[2025-01-04] MEDS: CLOPIDOGREL BISULFATE 75 MG TAB PO SCH (09:28)
[2025-01-04] MEDS: ASPIRIN 81 MG CHEW TAB PO SCH (09:29)
[2025-01-04] MEDS: DILTIAZEM HCL ER 120 MG CAP PO SCH ×2 (09:29→17:47)
[2025-01-04] MEDS: TOPIRAMATE 25 MG TAB PO SCH (09:29)
[2025-01-04] MEDS: ATORVASTATIN 10 MG TAB PO SCH (09:30)
[2025-01-04] MEDS ORDERED: SODIUM BICARBONATE 8.4% SYRING 100 ML in DEXTROSE 5% 1,000 ML IV ONE (10:30)
[2025-01-04] MEDS: SODIUM BICARBONATE 8.4% VIAL 100 ML in DEXTROSE 5% 1,000 ML IV ONE (13:18)
[2025-01-04] MEDS: AMITRIPTYLINE HCL 25 MG TAB PO SCH (21:49)
[2025-01-05] VITALS (9 sets, daily range): BP systolic 93–159; BP diastolic 56–86; PULSE 67–99; RESP 17–18; TEMP 96.6–97.8; O2SAT 97–100
[2025-01-05 06:42] LABS: BASOPHILS % 0.3 % (0.0-1.0); EOSINOPHILS # (AUTO) 0.1 (0.0-0.4); HEMATOCRIT 37.9 % (38.2-49.6); HEMOGLOBIN 12.4 g/dL (14.0-18.0); LYMPHOCYTES # (AUTO) 1.4 (1.0-3.2); MEAN CORPUSCULAR HGB CONC 32.7 g/dL (31-35); MEAN CORPUSCULAR VOLUME 91.5 fL (81-99); MONOCYTES # (AUTO) 0.7 (0.2-0.8); MONOCYTES % 10.7 % (4.4-11.3); NEUTROPHILS # (AUTO) 3.9 (2.1-6.9); NEUTROPHILS % 63.3 % (38.7-80.0); PLATELET COUNT 199 x10e3/uL (140-360); RED BLOOD COUNT 4.14 x10e6/uL (4.3-5.7); RED CELL DISTRIBUTION WIDTH 14.9 % (11.7-14.4)
[2025-01-05 07:22] LABS: ANION GAP 13.3 mmol/L (8-16); CALCIUM 8.6 mg/dL (8.4-10.2); CREATININE, SERUM 0.87 mg/dL (0.72-1.25)
[2025-01-05 07:27] LABS: POTASSIUM 3.3 mmol/L (3.5-5.1)
[2025-01-06] VITALS (12 sets, daily range): BP systolic 122–138; BP diastolic 71–84; PULSE 62–98; RESP 17–22; TEMP 97.2–98.6; O2SAT 92–100
[2025-01-06 05:19] LABS: BASOPHILS % 0.3 % (0.0-1.0); EOSINOPHILS # (AUTO) 0.1 (0.0-0.4); EOSINOPHILS % 1.7 % (0.0-6.0); HEMATOCRIT 41.5 % (38.2-49.6); HEMOGLOBIN 13.4 g/dL (14.0-18.0); LYMPHOCYTES # (AUTO) 1.6 (1.0-3.2); LYMPHOCYTES % 24.4 % (18.0-39.1); MEAN CORPUSCULAR HEMOGLOBIN 29.6 pg (28-32); MEAN CORPUSCULAR HGB CONC 32.3 g/dL (31-35); MEAN CORPUSCULAR VOLUME 91.8 fL (81-99); MONOCYTES # (AUTO) 0.6 (0.2-0.8); MONOCYTES % 8.5 % (4.4-11.3); NEUTROPHILS # (AUTO) 4.3 (2.1-6.9); NEUTROPHILS % 64.2 % (38.7-80.0); PLATELET COUNT 233 x10e3/uL (140-360); RED BLOOD COUNT 4.52 x10e6/uL (4.3-5.7); RED CELL DISTRIBUTION WIDTH 14.7 % (11.7-14.4); WHITE BLOOD COUNT 6.61 x10e3/uL (4.8-10.8)
[2025-01-06 08:49] LABS: EOSINOPHILS % (MANUAL) 3 % (0-7); LYMPHOCYTES % (MANUAL) 28 % (19-48); MONOCYTES % (MANUAL) 8 % (3.4-9.0); NEUTROPHILS % (MANUAL) 59 % (40-74); RBC MORPHOLOGY COMMENT NORMAL; REACTIVE LYMPHOCYTES 2
[2025-01-06 08:50] LABS: PLATELET ESTIMATE ADEQUATE; PLATELET MORPHOLOGY COMMENT NORMAL
[2025-01-06] MEDS ORDERED: PHENAZOPYRIDINE HCL 100 MG TAB PO PRN (12:00)
[2025-01-06] MEDS: PHENAZOPYRIDINE HCL 100 MG TAB PO SCH (14:11)
[2025-01-07 03:29] VITALS: BP 125/79; PULSE 69; RESP 18; TEMP 97.2; O2SAT 100
[2025-01-07 07:55] VITALS: BP 146/86; PULSE 83; RESP 18; TEMP 97.2; O2SAT 100
[2025-01-07 08:02] VITALS: BP 146/86; PULSE 83; RESP 18; TEMP 97.2; O2SAT 100
[2025-01-07] MEDS ORDERED: LEVOFLOXACIN250 MG PO (08:04)
[2025-01-07] MEDS ORDERED: DILTIAZEM 24HR120 M1 PO (08:04)
[2025-01-07] MEDS ORDERED: PYRIDIUM100 MG PO (08:04)
[2025-01-07] MEDS: POTASSIUM CHLORIDE 20 MEQ TAB CR PO ONE (08:33)
[2025-01-07 08:44] VITALS: BP 146/86; PULSE 85
== END 2025-01-07 10:00 | disposition home or self-care (01) | DRG 872 ==
LOC: ER 03:22 → ERHOLD 05:08 → MED/SURG 08:23
PROVIDERS: ADMIT Internal Medicine; ATTEND Internal Medicine
PROC: 3E0333Z Introduction of Anti-inflammatory into Peripheral Vein, Percutaneous Approach (ICD-10-PCS; principal; 2025-01-03)
DX: A41.51 Sepsis due to Escherichia coli [E. coli] (principal); E87.20 Acidosis, unspecified; Z16.12 Extended spectrum beta lactamase (ESBL) resistance; N39.0 Urinary tract infection, site not specified; I47.10 Supraventricular tachycardia, unspecified; E87.1 Hypo-osmolality and hyponatremia; N13.8 Other obstructive and reflux uropathy; N40.1 Benign prostatic hyperplasia with lower urinary tract symptoms; I48.0 Paroxysmal atrial fibrillation; E86.0 Dehydration; Z87.891 Personal history of nicotine dependence; R39.14 Feeling of incomplete bladder emptying; I49.3 Ventricular premature depolarization; E03.9 Hypothyroidism, unspecified; Z11.52 Encounter for screening for COVID-19; R53.81 Other malaise; E66.9 Obesity, unspecified; Z68.32 Body mass index [BMI] 32.0-32.9, adult; Z79.82 Long term (current) use of aspirin; Z79.02 Long term (current) use of antithrombotics/antiplatelets; Z79.890 Hormone replacement therapy; Z85.46 Personal history of malignant neoplasm of prostate
CPT/HCPCS: 36415; 71260; 74177; 80048; 80053; 81001; 82550; 83518; 83605; 83690; 84484; 85025; 87040; 87070; 87086; 87186; 93005; 94799; 99284; J1650; J2185; J2270; J2405; J2543; J7030; J7070; Q9967